=== PATIENT | female | born 1980 | race African-American/Black ===

== ENCOUNTER 2017-01-23 19:31 | Emergency (ER) | payer OTHER ==
[2017-01-23 19:48] VITALS: BP 146/99
--- NOTE | 2017-01-23 20:49 | EDM.PDOC ---
ED HPI GENERAL MEDICAL PROBLEM - General Chief Complaint: Lower Extremity Injury/Pain Stated Complaint: RIGHT ANKLE INJURY Time Seen by Provider: 01/23/17 19:34 Source of Information: Reports: Patient History Limitations: Reports: No Limitations - History of Present Illness INITIAL COMMENTS - FREE TEXT/NARRATIVE: This is a 36-year-old female. Back on the was at work and pulling a big trash bin and apparently the trashcan heater in the back of her right foot along the Achilles tendon. He was obviously painful and had some swelling but he she seems to have gotten over it. In the last couple of days she says however she has some sharp pain in the Achilles tendon area at the base where it attaches to the calcaneus. He denies any swelling she denies any other acute symptoms but she thinks is related to the injury she had on the . She does wear shoes that have the back part of the shoe that pushes on the Achilles tendon. - Related Data Allergies Allergy/AdvReac Type Severity Reaction Status Date / Time No Known Allergies Allergy Verified 01/23/17 19:42 Home Meds: Home Meds . [No Known Home Meds] 01/23/17 [History] Past Medical History Other HEENT History: one tooth removes Cardiovascular History: Reports: Hypertension [employer] History: Reports: Dermatologic History: Reports: Urticaria Social & Family History - Family History Family Medical History: Noncontributory - Tobacco Use Smoking Status *Q: Never Smoker - Caffeine Use Caffeine Use: Reports: Tea - Recreational Drug Use Recreational Drug Use: No Review of Systems - Review of Systems Review Of Systems: See Below Constitutional: Reports: No Symptoms Eyes: Reports: No Symptoms Ears: Reports: No Symptoms Nose: Reports: No Symptoms Mouth/Throat: Reports: No Symptoms Respiratory: Reports: No Symptoms Cardiovascular: Reports: No Symptoms GI/Abdominal: Reports: No Symptoms Genitourinary: Reports: No Symptoms Musculoskeletal: Reports: Other (As per history of present illness) Skin: Reports: No Symptoms Neurological: Reports: No Symptoms Psychiatric: Reports: No Symptoms ED EXAM, GENERAL - Physical Exam Exam: See Below Exam Limited By: No Limitations General Appearance: Alert, WD/WN, No Apparent Distress Ears: Normal External Exam Nose: Normal Inspection Throat/Mouth: Normal Inspection, Normal Lips, Normal Voice Head: Normocephalic Neck: Supple Respiratory/Chest: No Respiratory Distress Back Exam: Full Range of Motion Extremities: Normal Inspection, Normal Range of Motion, Other (The right calcaneus and Achilles tendon area does not show any swelling or injury, where the Achilles tendon attaches to the calcaneus there is some mild tenderness on palpation, there is no Achilles tendon deficit noted, there is no other acute foot or ankle symptoms ) Neurological: Alert, Oriented Psychiatric: Normal Affect, Normal Mood Skin Exam: Warm, Dry Course - Vital Signs Last Recorded V/S: Last Vital Signs Temp 98.5 F 01/23/17 19:43 Pulse 85 01/23/17 19:43 Resp 13 01/23/17 19:43 BP 146/99 H 01/23/17 19:43 Pulse Ox 98 01/23/17 19:43 - Orders/Labs/Meds Orders: Active Orders 24 hr Category Date Time Status Ankle Min 3V Rt [CR] Stat Exams 01/23/17 19:54 Taken - Radiology Interpretation Free Text/Narrative:: X-ray of the right ankle reveals no acute changes - Re-Assessments/Exams Free Text/Narrative Re-Assessment/Exam: 01/23/17 21:35 I spoke to the patient regarding the x-ray results. I believe she has a little Achilles tendinitis due to the trauma that occurred in minutes being aggravated by the shoes that she wears. I placed a 3 inch Walter wrap to pad the area around the Achilles tendon and suggested she get some moleskin and wrapped that area or if she wears the shoes or push on that Achilles tendon. Departure - Departure Time of Disposition: 21:35 Disposition: Home, Self-Care 01 Condition: Good Clinical Impression: Right Achilles tendinitis - Discharge Information Referrals: PCP,None [Primary Care Provider] - Forms: ED Department Discharge Additional Instructions: Wrap the area of the Achilles tendon so it is padded when you wearing your shoes , consider getting some moleskin and wrapping that area of Achilles tendon so there is no pressure put on that tendon when you wear your shoes at work, recheck with your companies designated medical provider if needed, return to the ER if needed - My Orders Last 24 Hours: My Active Orders 01/23/17 19:54 Ankle Min 3V Rt [CR] Stat - Assessment/Plan Last 24 Hours: My Active Orders 01/23/17 19:54 Ankle Min 3V Rt [CR] Stat
--- NOTE | 2017-01-25 17:59 | CR ---
Right ankle: Four views of the right ankle were obtained. Comparison: No previous study. Ankle mortise is symmetric. Very minimal plantar spur is seen. No acute fracture, dislocation or other bony abnormality is seen. Impression: 1. Minimal plantar spur. 2. Nothing acute is identified on four-view right ankle study. Diagnostic code #2
== END 2017-01-23 21:45 | disposition home or self-care (01) ==
LOC: JD.ED 19:31
DX: M76.61 Achilles tendinitis, right leg (principal); I10 Essential (primary) hypertension
CPT/HCPCS: 73610-26-RT; 73610-RT; 99283